=== PATIENT | male | born 1985 | race Caucasian/White ===

== ENCOUNTER 2023-06-10 09:55 | Emergency (ER) | payer SELFPAY ==
[~2023-06-10] VITALS: Ht 182 cm; Wt 83.9 kg
[2023-06-10 10:00] VITALS: BP 142/88
--- NOTE | 2023-06-10 11:15 | ED Psychosocial ---
General Chief Complaint: Substance Abuse Stated Complaint: DETOX Nursing Triage Note: PT AMBULATORY TO ER WITH VISITOR. PT REPORTS HX OF METH AND FENTANYL ABUSE, REPORTS LAST USE WAS YESTERDAY, SMOKED. PT CURRENTLY DENIES SI/HI. PT REPORTS PREVIOUS ATTEMPTS TO WITHDRAW FROM SUBSTANCES. PT SEEKING HELP WITH ADDICTION. Source: patient Exam Limitations: no limitations (MAURA IVORY) History of Present Illness Date Seen by Provider: Jun 10, 2023 Time Seen by Provider: 11:13 Initial Comments Patient is a 38-year-old male who presents to the ED for detox. Patient states he abuses fentanyl and meth with fairly daily use. Last use was yesterday. Smokes both. Patient states he is currently wanting medical detox. Patient has been recently seen at [facility] and [facility] and states they were not able to give him any help. He lives in [place]. History of detox in the past. Patient states he has had intermittent body aches some episodes of diarrhea and nausea. No specific symptoms today. He has had hallucinations in the past. No auditory or visual hallucinations at this time. Intermittent alcohol use. He denies of any tremoring, headache, dizziness, visual changes, chest pain, shortness of breath, Rodrick pain vomiting or diarrhea. Denies any urinary symptoms. Patient is currently asymptomatic (MAURA IVORY) Allergies and Home Medications Allergies Coded Allergies: No Known Drug Allergies (Unverified , 06/10/23) Patient Home Medication List Home Medication List Reviewed: Yes (MAURA IVORY) Review of Systems Constitutional: No chills, No diaphoresis, No fever, No malaise, No weakness EENTM: No hearing loss, No ear pain, No blurred vision Respiratory: No cough, No dyspnea on exertion Cardiovascular: No chest pain, No edema, No other Gastrointestinal: No abdominal pain, No nausea, No vomiting Genitourinary: No decreased output, No dysuria, No frequency Musculoskeletal: No back pain, No joint pain Skin: No change in color, No change in hair/nails Psychiatric/Neurological: Denies Anxiety, Denies Depressed, Denies Headache, Denies Numbness (MAURA IVORY) All Other Systems Reviewed Negative Unless Noted: Yes (MAURA IVORY) Past Iksecnz-Bsvald-Hecqys Hx Patient Social History Tobacco Use?: Yes Tobacco type used: Cigarettes Smoking Status: Current Everyday Smoker Substance use?: Yes Substance type: Methamphetamine, Opiates/Opioids Substance frequency: Daily Alcohol Use?: Yes Pt feels they are or have been: No (MAURA IVORY) Immunizations Up To Date First/Initial COVID19 Vaccinat: RECEIVED, UNK WHEN Second COVID19 Vaccination Harmeet: RECEIVED, UNK WHEN COVID19 Vaccine Production Engineer: UNK (MAURA IVORY) Physical Exam Vital Signs - First Documented 06/10/23 10:00 Temp 36.9 Pulse 111 Resp 16 B/P (MAP) 142/88 (106) Pulse Ox 100 O2 Delivery Room Air (MAIRA LUNA MD) Capillary Refill : (MAURA IVORY) Height, Weight, BMI Height: '" Weight: lbs. oz. kg; 25.00 BMI Method: General Appearance: WD/WN, no apparent distress HEENT: PERRL/EOMI, normal ENT inspection, TMs normal, pharynx normal Neck: non-tender, full range of motion, supple Respiratory: chest non-tender, lungs clear, normal breath sounds, no respiratory distress, no accessory muscle use Cardiovascular: regular rate, rhythm, no edema, no gallop, no JVD Gastrointestinal: normal bowel sounds, non tender, soft, no organomegaly Extremities: normal range of motion, non-tender, normal inspection, no pedal edema Neurologic/Psychiatric: shipping and receiving weigher II-XII nml as tested, no motor/sensory deficits, alert, normal mood/affect, oriented x 3 Appearance/Memory: appropriate appearance, appropriate insight Behavior/Eye Contact: cooperative, good eye contact, normal speech Thoughts/Hallucinations: normal thought pattern, no apparent hallucination Skin: normal color, warm/dry (MAURA IVORY) Progress/Results/Core Measures Results/Orders Lab Results Laboratory Tests Test 06/10/23 11:23 06/10/23 11:39 Range/Units White Blood Count 9.8 4.3-11.0 10^3/uL Red Blood Count 4.56 4.30-5.52 10^6/uL Hemoglobin 13.5 13.3-17.7 g/dL Hematocrit 41 40-54 % Mean Corpuscular Volume 90 80-99 fL Mean Corpuscular Hemoglobin 30 25-34 pg Mean Corpuscular Hemoglobin Concent 33 32-36 g/dL Red Cell Distribution Width 13.9 10.0-14.5 % Platelet Count 513 H 130-400 10^3/uL Mean Platelet Volume 9.3 9.0-12.2 fL Immature Granulocyte % (Auto) 0 % Neutrophils (%) (Auto) 69 42-75 % Lymphocytes (%) (Auto) 19 12-44 % Monocytes (%) (Auto) 7 0-12 % Eosinophils (%) (Auto) 4 0-10 % Basophils (%) (Auto) 1 0-10 % Neutrophils # (Auto) 6.8 1.8-7.8 10^3/uL Lymphocytes # (Auto) 1.8 1.0-4.0 10^3/uL Monocytes # (Auto) 0.7 0.0-1.0 10^3/uL Eosinophils # (Auto) 0.4 H 0.0-0.3 10^3/uL Basophils # (Auto) 0.1 0.0-0.1 10^3/uL Immature Granulocyte # (Auto) 0.0 0.0-0.1 10^3/uL Sodium Level 140 135-145 MMOL/L Potassium Level 4.3 3.6-5.0 MMOL/L Chloride Level 107 98-107 MMOL/L Carbon Dioxide Level 25 21-32 MMOL/L Anion Gap 8 5-14 MMOL/L Blood Urea Nitrogen 7 7-18 MG/DL Creatinine 0.83 0.60-1.30 MG/DL Estimat Glomerular Filtration Rate 113 BUN/Creatinine Ratio 8 Glucose Level 88 70-105 MG/DL Calcium Level 9.3 8.5-10.1 MG/DL Corrected Calcium 9.4 8.5-10.1 MG/DL Total Bilirubin 0.5 0.1-1.0 MG/DL Aspartate Amino Transf (AST/SGOT) 18 5-34 U/L Alanine Aminotransferase (ALT/SGPT) 31 0-55 U/L Alkaline Phosphatase 77 40-136 U/L Total Protein 6.8 6.4-8.2 GM/DL Albumin 3.9 3.2-4.5 GM/DL Salicylates Level < 5.0 L 5.0-20.0 MG/DL Acetaminophen Level < 10 L 10-30 UG/ML Serum Alcohol < 10 <10 MG/DL Urine Color YELLOW Urine Clarity CLEAR Urine pH 7.0 5-9 Urine Specific Medon 1.015 L 1.016-1.022 Urine Protein NEGATIVE NEGATIVE Urine Glucose (UA) NEGATIVE NEGATIVE Urine Ketones NEGATIVE NEGATIVE Urine Nitrite NEGATIVE NEGATIVE Urine Bilirubin NEGATIVE NEGATIVE Urine Urobilinogen 2.0 < = 1.0 MG/DL Urine Leukocyte Esterase NEGATIVE NEGATIVE Urine RBC (Auto) NEGATIVE NEGATIVE Urine RBC NONE /HPF Urine WBC RARE /HPF Urine Crystals NONE /LPF Urine Bacteria NEGATIVE /HPF Urine Casts NONE /LPF Urine Mucus SMALL H /LPF Urine Culture Indicated NO Urine Opiates Screen NEGATIVE NEGATIVE Urine Oxycodone Screen NEGATIVE NEGATIVE Urine Methadone Screen NEGATIVE NEGATIVE Urine Propoxyphene Screen NEGATIVE NEGATIVE Urine Barbiturates Screen NEGATIVE NEGATIVE Ur Tricyclic Antidepressants Screen NEGATIVE NEGATIVE Urine Phencyclidine Screen NEGATIVE NEGATIVE Urine Amphetamines Screen POSITIVE H NEGATIVE Urine Methamphetamines Screen POSITIVE H NEGATIVE Urine Benzodiazepines Screen POSITIVE H NEGATIVE Urine Cocaine Screen NEGATIVE NEGATIVE Urine Cannabinoids Screen NEGATIVE NEGATIVE (MAIRA LUNA MD) Vital Signs/I&O 06/10/23 12:30 Pulse 81 Resp 16 B/P (MAP) 138/94 (109) Pulse Ox 100 O2 Delivery Room Air (MAIRA LUNA MD) Blood Pressure Mean: 106 Comment Sinus rhythm, possible left atrial enlargement, possible right ventricular conduction delay, 91 bpm, QRS duration 105 MS, QTc 404 MS (MAURA IVORY) Departure Communication (PCP) Patient is a 38-year-old male who presents the ED for drug abuse and for medical detox. History of meth and fentanyl use. Last use was yesterday. He reports smoking meth and fentanyl. Patient reports history of hallucinations. Reports history of withdrawals. No current complaint at this time. No suicidal or homicidal thoughts. No hallucinations. Patient is wanting detox. Discussed with patient we will perform general work-up. If any abnormalities will treat accordingly. CBC, CMP was grossly unremarkable. EKG normal sinus rhythm without evidence of ST elevation or depression. Denies chest pain or shortness of breath. Patient is positive for amphetamines and methamphetamines and benzos. Normal alcohol level. Vital signs stable. Does not appear to be actively withdrawing. Discussed with patient we do not do medical detox here. Did provide information to [facility] in [place] which I recommended to get evaluated today for their detox program. He agreed with this plan of action. Patient feels safe to be discharged. Family here with patient. Return precaution were discussed. (MAURA IVORY) Impression Primary Impression: Drug abuse Disposition: 01 HOME, SELF-CARE Condition: Stable Departure-Patient Inst. Decision time for Depature: 12:07 (MAURA IVORY) Referrals: [facility]),LOCAL PHYSICIAN (PCP) Primary Care Physician Patient Instructions: Drug Withdrawal (DC) Add. Discharge Instructions: Recommend following up with the addiction treatment center in [place]. Phone number is [phone] All discharge instructions reviewed with patient and/or family. Voiced understanding. ATTENDING PHYSICIAN NOTE: I was physically present as attending physician in the emergency department during the care of this patient, but I was not directly involved in the decision making or delivery of care for this patient. (MAIRA LUNA MD) MAURA IVORY Jun 10, 2023 11:15 MAIRA LUNA MD Jun 10, 2023 23:12
[2023-06-10 11:33] LABS: BASOPHILS # (AUTO) 0.1 10^3/uL (0.0-0.1); BASOPHILS % (AUTO) 1 % (0-10); EOSINOPHILS # (AUTO) 0.4 10^3/uL (0.0-0.3); EOSINOPHILS % (AUTO) 4 % (0-10); HEMATOCRIT 41 % (40-54); HEMOGLOBIN 13.5 g/dL (13.3-17.7); LYMPHOCYTES # (AUTO) 1.8 10^3/uL (1.0-4.0); LYMPHOCYTES % (AUTO) 19 % (12-44); MEAN CORPUSCULAR HEMOGLOBIN 30 pg (25-34); MEAN CORPUSCULAR HGB CONC 33 g/dL (32-36); MEAN CORPUSCULAR VOLUME 90 fL (80-99); MEAN PLATELET VOLUME 9.3 fL (9.0-12.2); MONOCYTES # (AUTO) 0.7 10^3/uL (0.0-1.0); MONOCYTES % (AUTO) 7 % (0-12); NEUTROPHILS # (AUTO) 6.8 10^3/uL (1.8-7.8); NEUTROPHILS % (AUTO) 69 % (42-75); PLATELET COUNT 513 10^3/uL (130-400); WHITE BLOOD COUNT 9.8 10^3/uL (4.3-11.0)
[2023-06-10 11:40] LABS: CHLORIDE 107 MMOL/L (98-107); POTASSIUM 4.3 MMOL/L (3.6-5.0); SODIUM 140 MMOL/L (135-145)
[2023-06-10 11:41] LABS: ALBUMIN 3.9 GM/DL (3.2-4.5)
[2023-06-10 11:42] LABS: CALCIUM 9.3 MG/DL (8.5-10.1)
[2023-06-10 11:43] LABS: GLUCOSE 88 MG/DL (70-105); TOTAL PROTEIN 6.8 GM/DL (6.4-8.2)
[2023-06-10 11:44] LABS: CARBON DIOXIDE 25 MMOL/L (21-32)
[2023-06-10 11:45] LABS: BILIRUBIN,TOTAL 0.5 MG/DL (0.1-1.0)
[2023-06-10 11:47] LABS: ALKALINE PHOSPHATASE 77 U/L (40-136); CREATININE SERUM 0.83 MG/DL (0.60-1.30); GFR ESTIMATED 113
[2023-06-10 11:48] LABS: BUN/CREATININE RATIO 8
[2023-06-10 11:50] LABS: ALANINE AMINOTRANSFERASE 31 U/L (0-55); SALICYLATE < 5.0 MG/DL (5.0-20.0)
[2023-06-10 11:56] LABS: ACETAMINOPHEN < 10 UG/ML (10-30)
[2023-06-10 12:00] LABS: CLARITY,URINE CLEAR; COLOR,URINE YELLOW; PROTEIN,URINE NEGATIVE (NEGATIVE)
[2023-06-10 12:01] LABS: BACTERIA,URINE NEGATIVE /HPF; BILIRUBIN,URINE NEGATIVE (NEGATIVE); GLUCOSE, URINE (UA) NEGATIVE (NEGATIVE); KETONES,URINE NEGATIVE (NEGATIVE); LEUKOCYTE ESTERASE ,URINE NEGATIVE (NEGATIVE); NITRITE,URINE NEGATIVE (NEGATIVE); WBC,URINE RARE /HPF
[2023-06-10 12:02] LABS: AMPHETAMINE SCREEN, URINE POSITIVE (NEGATIVE); BARBITURATE SCREEN URINE NEGATIVE (NEGATIVE); CANNABINOID SCREEN, URINE NEGATIVE (NEGATIVE); COCAINE SCREEN URINE NEGATIVE (NEGATIVE); METHADONE STAT NEGATIVE (NEGATIVE); OPIATE SCREEN URINE NEGATIVE (NEGATIVE); OXYCODONE STAT NEGATIVE (NEGATIVE); PROPOXYPHENE STAT NEGATIVE (NEGATIVE); TRICYCLIC ANTIDEPRESSANTS SCRE NEGATIVE (NEGATIVE)
== END 2023-06-10 12:31 | disposition home or self-care (01) ==
LOC: ER 09:58
DX: F15.10 Other stimulant abuse, uncomplicated (principal); F11.10 Opioid abuse, uncomplicated; F17.210 Nicotine dependence, cigarettes, uncomplicated
CPT/HCPCS: 80053; 80306; 81000; 85025; G0480 ×3; 36415; 80320; 80329; 93005